=== PATIENT | male | born 1995 | race Caucasian/White ===

== ENCOUNTER 2025-08-18 17:29 | Emergency (ER) | payer SELFPAY ==
[2025-08-18] MEDS ORDERED: cefTRIAXone (ROCEPHIN) 500 MG VIAL ONE (18:30)
== END 2025-08-18 18:55 | disposition home or self-care (01) ==
LOC: CSHERS 17:29
DX: N48.89 Other specified disorders of penis (principal); Z87.891 Personal history of nicotine dependence
CPT/HCPCS: 96372; 99283; J0696